=== PATIENT | female | born 1965 | race African-American/Black ===

== ENCOUNTER 2024-02-01 23:55 | Emergency (ER) | payer BC, OTHER ==
[~2024-02-01] VITALS: Ht 167.6 cm; Wt 118.0 kg
[2024-02-02 00:03] VITALS: TEMP 96.5
[2024-02-02] MEDS: METHYLPREDNISOLONE SOD SUCC 125MG/2ML (ACT-O-VIAL) IV STA (00:39)
[2024-02-02] MEDS: IPRATROPIUM BROMIDE (0.02%) 0.5MG/2.5ML NEB HHN STA (00:40)
[2024-02-02] MEDS: ALBUTEROL (0.083%) 2.5MG/3ML NEB HHN STA (00:41)
[2024-02-02 00:46] VITALS: PULSE 119; RESP 21; O2SAT 97
[2024-02-02 01:01] LABS: HEMATOCRIT. 37.4 % (36.0-48.0); HEMOGLOBIN. 12.4 g/dL (12.0-16.0); MEAN CORPUSCULAR HEMOGLOBIN 27.6 pg (28.0-32.0); MEAN CORPUSCULAR HGB CONC 33.1 g/dL (31.0-37.0); MEAN CORPUSCULAR VOLUME 83.4 fL (81.0-99.0); PLATELET 287 x1000/uL (130-400); RED BLOOD CELL COUNT 4.49 mill/uL (4.2-5.4); RED CELL DISTRIBUTION WIDTH 14.3 % (11.6-14.6); WHITE BLOOD COUNT 8.4 x1000/uL (4.5-11.0)
[2024-02-02 01:05] LABS: DIFFERENTIAL COMMENT 1
[2024-02-02 01:08] LABS: CHLORIDE 102 mEq/L (98-107); SODIUM 137 mEq/L (136-145)
[2024-02-02 01:09] LABS: CARBON DIOXIDE 21 mEq/L (21-32)
[2024-02-02 01:10] LABS: CALCIUM 9.6 mg/dL (8.7-10.4)
[2024-02-02 01:14] LABS: CREATININE 1.2 mg/dL (0.6-1.0); GLUCOSE 213 mg/dL (70-105); UREA NITROGEN BLOOD 16 mg/dL (9-23)
[2024-02-02 01:27] LABS: ETHANOL BLOOD < 10 mg/dL (<10)
[2024-02-02 01:28] LABS: POTASSIUM 2.7 mEq/L (3.5-5.1)
[2024-02-02 01:29] LABS: TROPONIN I HIGH SENSITIVITY 51 ng/L (3.0-34)
[2024-02-02] MEDS: MAGNESIUM 1 G PREMIX 100 ML IV ONE (01:43)
[2024-02-02] MEDS: POTASSIUM CHLORIDE 20MEQ/PACKET PO ONE (01:43)
[2024-02-02 02:20] VITALS: BP 136/72; PULSE 111; RESP 18; O2SAT 91
[2024-02-02 08:48] LABS: PLATELET ESTIMATE NORMAL
== END 2024-02-02 02:40 | disposition home or self-care (01) ==
LOC: ER 23:55
DX: J45.901 Unspecified asthma with (acute) exacerbation (principal); E87.6 Hypokalemia; R79.89 Other specified abnormal findings of blood chemistry; I10 Essential (primary) hypertension; Z00.00 Encounter for general adult medical examination without abnormal findings; Z88.6 Allergy status to analgesic agent; Z91.040 Latex allergy status
CPT/HCPCS: 99285; 80048; 80320; 83880; 85025; 84484; 36415; 71045; 94640; 93005; 96365; 96375; J3475; J2919; Z7610 ×5; G0480